=== PATIENT | female | born 1965 | race Caucasian/White ===

== ENCOUNTER 2017-12-21 09:06 | Emergency (ER) | payer MEDICARE, OTHER ==
[~2017-12-21] VITALS: Ht 175.3 cm; Wt 77.1 kg
--- NOTE | 2017-12-21 09:15 | NUR ---
[id number] FROM HOME FOR L KNEE PAIN- S/P L KNEE SX FOR TORN MINISCUS 12/20/17. 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 SEEN BY FOR EVAL. VSS. SAFETY AND COMFORT MEASURES PROVIDED. WILL MONITOR.
[2017-12-21] MEDS ORDERED: HYDROMORPHONE INJ 0.5 MG/0.5 ML SYRINGE IM ONE (09:30)
[2017-12-21] MEDS ORDERED: HYDROMORPHONE INJ 0.5 MG/0.5 ML SYRINGE ONE ×2 (09:30→09:39)
[2017-12-21] MEDS ORDERED: LORAZEPAM INJ 2 MG/ML VIAL IM ONE (10:00)
[2017-12-21] MEDS ORDERED: LORAZEPAM INJ 2 MG/ML VIAL ONE (10:09)
--- NOTE | 2017-12-21 10:14 | NUR ---
JELENA AT BS.
--- NOTE | 2017-12-21 12:20 | NUR ---
Patient discharged to home in stable condition. Written and verbal after care instructions given. Patient verbalizes understanding of instruction.
[2017-12-21 12:37] VITALS: BP 155/78
== END 2017-12-21 12:38 | disposition home or self-care (01) ==
LOC: ER 09:07
DX: M25.562 Pain in left knee (principal); I10 Essential (primary) hypertension; J45.909 Unspecified asthma, uncomplicated
CPT/HCPCS: 93971; 96372 ×2; 99284; A4606; J2060; Z7610

== ENCOUNTER 2017-12-21 22:56 | Emergency (ER) | payer MEDICARE, OTHER ==
[~2017-12-21] VITALS: Ht 162.6 cm; Wt 63.5 kg
[2017-12-21 23:00] VITALS: BP 163/98
--- NOTE | 2017-12-21 23:50 | NUR ---
PT TAKEN TO ROOM #11. PT IS AWAITING EVAL BY .
--- NOTE | 2017-12-22 00:03 | NUR ---
DR RAJAN IS AT THE BEDSIDE EVALUATING THE PT.
--- NOTE | 2017-12-22 00:08 | NUR ---
PT WAS Patient discharged to home in stable condition. Written and verbal after care instructions given. Patient verbalizes understanding of instruction. PT WAS TOLD TO TAKE THE PAIN MEDICATION PRESCRIBED BY HER SURGEON. PT WAS TAKEN TO THE LOBBY VIA WC. PT IS CALLING A FRIEND TO PICK HER UP. VSS
== END 2017-12-22 00:13 | disposition home or self-care (01) ==
LOC: ER 22:58
DX: G89.18 Other acute postprocedural pain (principal); M25.562 Pain in left knee; I10 Essential (primary) hypertension; J45.909 Unspecified asthma, uncomplicated; Z98.890 Other specified postprocedural states
CPT/HCPCS: 99283; A4606; Z7610

== ENCOUNTER 2020-06-05 16:36 | Emergency (ER) | payer MEDICARE, OTHER ==
[~2020-06-05] VITALS: Ht 175.3 cm; Wt 83.0 kg
[2020-06-05 16:45] VITALS: BP 134/78
[2020-06-05] MEDS ORDERED: ALBUTEROL FS 2.5 MG/3 ML VIAL.NEB ONE (17:11)
[2020-06-05] MEDS ORDERED: DEXAMETHASONE SOD PHOSPHATE 10 MG/ML VIAL ONE (17:22)
[2020-06-05] MEDS ORDERED: FAMOTIDINE (20 MG) 20 MG TABLET ONE (17:22)
[2020-06-05] MEDS ORDERED: diphenhydrAMINE HCL 25 MG CAPSULE ONE (17:22)
[2020-06-05] MEDS ORDERED: DEXAMETHASONE SOD PHOSPHATE 10 MG/ML VIAL IM ONE (17:30)
[2020-06-05] MEDS ORDERED: diphenhydrAMINE HCL ELIX 25 MG/10 ML UDC PO ONE (17:30)
[2020-06-05] MEDS ORDERED: ALBUTEROL FS 2.5 MG/3 ML VIAL.NEB CONTNEB ONE (17:30)
[2020-06-05] MEDS ORDERED: FAMOTIDINE (20 MG) 20 MG TABLET PO ONE (17:30)
--- NOTE | 2020-06-05 17:31 | NUR ---
ONGOING BREATHING TX
--- NOTE | 2020-06-05 18:24 | NUR ---
PATIENT APPEARS SLEEPY, WILL LET HER REST IN ED.
--- NOTE | 2020-06-05 19:40 | NUR ---
Patient discharged to home in stable condition. Written and verbal after care instructions given. Patient verbalizes understanding of instruction.pt. ambulatory with a steady gait
== END 2020-06-05 19:41 | disposition home or self-care (01) ==
LOC: ER 16:42
DX: L29.9 Pruritus, unspecified (principal); J45.909 Unspecified asthma, uncomplicated; I10 Essential (primary) hypertension; M54.9 Dorsalgia, unspecified; F17.210 Nicotine dependence, cigarettes, uncomplicated; Z79.899 Other long term (current) drug therapy; Z98.890 Other specified postprocedural states
CPT/HCPCS: 94640 ×2; 96372; 99284; 99406; J1100; Q0163